=== PATIENT | male | born 1970 | race Caucasian/White ===

== ENCOUNTER 2020-05-27 06:02 | Inpatient (IN) | payer BC ==
[~2020-05-27] VITALS: Ht 170.2 cm; Wt 70.3 kg
[2020-05-27 06:03] VITALS: Ht 170.2 cm; Wt 70.3 kg
[2020-05-27 07:00] LABS: BASOPHIL % 0.6 % (0-2); PLATELET COUNT 167 x10^3mcL (130-400); RED CELL DISTRIBUTION WIDTH 14.3 % (11.5-14.5)
[2020-05-27 07:20] LABS: CALCIUM 8.3 mg/dL (8.5-10.1); CHLORIDE SERUM 104 mmol/L (98-107); CREATININE SERUM 1.1 mg/dL (0.7-1.3); GFR1 > 60 mL/min; GLUCOSE SERUM 108 mg/dL (74-106); POTASSIUM SERUM 4.1 mmol/L (3.5-5.1); SODIUM SERUM 138 mmol/L (136-145)
[2020-05-27 07:24] LABS: ALBUMIN 3.9 g/dL (3.4-5.0); ALKALINE PHOSPHATASE 40 U/L (46-116); ALT/SGPT 21 U/L (16-63); AST/SGOT 18 U/L (15-37); BILIRUBIN TOTAL 0.6 mg/dL (0.20-1.00); TOTAL PROTEIN, SERUM 7.2 g/dL (6.4-8.2)
[2020-05-27 09:57] LABS: CHOLESTEROL/HDL RATIO 3.5; MAGNESIUM 2.1 mg/dL (1.8-2.4); PHOSPHOROUS 3.5 mg/dL (2.5-4.9)
[2020-05-27 10:03] LABS: T3 TOTAL 1.13 ng/mL
[2020-05-27 10:04] LABS: FREE T4 1.2 ng/dL (0.76-1.46); FREE THYROXINE INDEX 2.9 ug/dL (1.4-4.5); T4(THYROXINE) 8.2 ug/dL (4.7-13.3)
[2020-05-27 13:30] VITALS: BP 128/73
[2020-05-27 16:01] VITALS: BP 116/53
[2020-05-27 19:52] VITALS: BP 116/49
[2020-05-28 05:10] VITALS: BP 117/45
[2020-05-28 07:38] LABS: BASOPHIL % 0.6 % (0-2); PLATELET COUNT 174 x10^3mcL (130-400); RED CELL DISTRIBUTION WIDTH 14.1 % (11.5-14.5)
[2020-05-28 07:49] LABS: CALCIUM 8.6 mg/dL (8.5-10.1); CHLORIDE SERUM 103 mmol/L (98-107); GFR1 > 60 mL/min; GLUCOSE SERUM 88 mg/dL (74-106); POTASSIUM SERUM 4.4 mmol/L (3.5-5.1); SODIUM SERUM 138 mmol/L (136-145)
[2020-05-28 08:08] VITALS: BP 121/61
[2020-05-28 12:04] VITALS: BP 127/63
[2020-05-28 16:07] VITALS: BP 124/70
[2020-05-28 20:20] VITALS: BP 119/62
[2020-05-29 06:01] VITALS: BP 119/63
[2020-05-29 08:09] VITALS: BP 115/60
[2020-05-29 12:10] VITALS: BP 110/59
[2020-05-29] MEDS ORDERED: BAY PO (13:04)
[2020-05-29] MEDS ORDERED: ZESTRIL2.5 MG PO (14:16)
== END 2020-05-29 15:24 | disposition home or self-care (01) | DRG 313 ==
LOC: ED 06:02 → DU 09:27
PROVIDERS: Emergency Medicine; Internal Medicine; ADMIT Student in an Organized Health Care Education/Training Program; ATTEND Student in an Organized Health Care Education/Training Program
DX: R07.89 Other chest pain (principal); I42.9 Cardiomyopathy, unspecified; I38 Endocarditis, valve unspecified; F17.210 Nicotine dependence, cigarettes, uncomplicated; Z71.6 Tobacco abuse counseling; Z20.828 Contact with and (suspected) exposure to other viral communicable diseases
CPT/HCPCS: 83880; 84439; 85378; 99406; G0378; J1885; J2270; Q9967